=== PATIENT | female | born 1945 | race Caucasian/White ===

== ENCOUNTER 2019-10-17 15:30 | Emergency (ER) | payer MEDICARE, OTHER ==
[2019-10-17] MEDS ORDERED: Ondansetron 4 MG/2 ML SDV IVPUSH ONE ×2 (15:41→18:04)
[2019-10-17] MEDS ORDERED: Morphine 2 MG/ML SYRINGE IVPUSH ONE ×2 (15:42→18:03)
--- NOTE | 2019-10-17 15:59 | EDM.PDOC ---
ED HPI GENERAL MEDICAL PROBLEM - General Chief Complaint: Lower Extremity Injury/Pain Stated Complaint: FELL Time Seen by Provider: 10/17/19 15:40 Source of Information: Reports: Patient History Limitations: Reports: No Limitations - History of Present Illness INITIAL COMMENTS - FREE TEXT/NARRATIVE: This 73 year old female is admitted to the ED with a chief complaint of fall backwards and twisting her left hip after accidently striking her forehead on her garage door. She complains of moderate amount of pain in the left hip especially with movement. She denies any LOC but was dazed. She denies any headache or neck discomfort. She denies any chest pain or SOB. She is status post right total hip replacement by history. She denies other complaints at this time. She grades her pain as a 8-9/10 at this time. She received Fentanyl 50mcg IV prior to her arrival to the ED. Onset: Sudden (one hour CARE TECH to the ED) Left Hip Pain Score (Numeric/FACES): 7 - Related Data Allergies Allergy/AdvReac Type Severity Reaction Status Date / Time adhesive Allergy Redness Verified 10/17/19 15:41 chlorhexidine Allergy Itching Verified 10/17/19 16:28 fexofenadine [From Sindhu] Allergy Itching Verified 10/17/19 16:31 fexofenadine HCl Allergy Hives Verified 10/17/19 15:41 [From Sindhu] hydrocodone Allergy Itching Verified 10/17/19 16:31 tramadol Allergy Itching Verified 10/17/19 16:28 artifical sweetners Allergy Itching Uncoded 10/17/19 16:28 perfumes Allergy Headache Uncoded 10/17/19 15:41 Home Meds: Home Meds Bilberry 1 tab PO DAILY 07/24/14 [History] Gilbert Cit/Mag/D3/Zn/Shower Maid/Chadd/Bor [Citracal-Vit D + Magnesium] 1 tab PO DAILY 07/24 [History] Fexofenadine HCl 60 mg PO DAILY 07/24/14 [History] Pantoprazole Sodium 40 mg PO DAILY 07/24/14 [History] Parsley/Garlic [Garlic & Parsley] 1 tab PO DAILY 07/24/14 [History] Raloxifene HCl 60 mg PO DAILY 07/24/14 [History] Vitamin B Complex 1 tab PO DAILY 07/24/14 [History] estradioL [Estrace 0.01% Vaginal Crm] 2 gm VAG ASDIRECTED 10/17/19 [History] Review of Systems - Review of Systems Review Of Systems: See Below Constitutional: Reports: No Symptoms Eyes: Reports: No Symptoms Ears: Reports: No Symptoms Nose: Reports: No Symptoms Mouth/Throat: Reports: No Symptoms Respiratory: Reports: No Symptoms Cardiovascular: Reports: No Symptoms GI/Abdominal: Reports: No Symptoms Genitourinary: Reports: No Symptoms Musculoskeletal: Reports: Other (pain in left hip) Skin: Reports: No Symptoms Neurological: Reports: No Symptoms ED EXAM, GENERAL - Physical Exam Exam: See Below Exam Limited By: No Limitations General Appearance: Alert, WD/WN, Moderate Distress (complaining of left hip pain especially with movement) Eye Exam: Bilateral Eye: EOMI, Normal Inspection, PERRL Ears: Normal External Exam, Normal Canal, Hearing Grossly Normal, Normal TMs Ear Exam: Bilateral Ear: Auricle Normal, Canal Normal, TM normal Nose: Normal Inspection, Normal Mucosa, No Blood Throat/Mouth: Normal Inspection, Normal Oropharynx, No Airway Compromise Head: Atraumatic, Normocephalic, Other (NO signs of trauma of any kind) Neck: Normal Inspection, Supple, Non-Tender, Full Range of Motion. No: Carotid Bruit Respiratory/Chest: No Respiratory Distress, Lungs Clear, Normal Breath Sounds, Chest Non-Tender Cardiovascular: Normal Peripheral Pulses, Regular Rate, Rhythm, No Edema, No Gallop, No JVD, Systolic Murmur (soft systolic ejection murmur grade 2/6 best heard at the apex without radiation of murmur.) Peripheral Pulses: 3+: Femoral (L), Femoral (R), Dorsalis Pedis (L), Dorsalis Pedis (R) GI/Abdominal: Normal Bowel Sounds, Soft, Non-Tender, No Organomegaly, No Distention, No Abnormal Bruit, No Mass (Female) Exam: Deferred Rectal (Female) Exam: Deferred Back Exam: Normal Inspection Extremities: No Pedal Edema, Normal Capillary Refill, Other (left leg is shortened and externally rotated. Neuro/Vasc intact). No: Jese's Sign Neurological: Alert, Oriented (times 4), CN II-XII Intact, Normal Cognition, Normal Reflexes, No Motor/Sensory Deficits Psychiatric: Normal Affect, Normal Mood Skin Exam: Warm, Dry, Intact, Normal Color, No Rash Lymphatic: No Adenopathy Course - Vital Signs Text/Narrative:: The patient X-rays reveals a Subcapital and intertroch fracture of the left femur (hip). I discussed this with the patient and showed her the x-rays. She understands that we do not have an orthopedic surgeon available until Monday. She has agreed to transfer via ALS. I spoke with Dr. Ortiz at [facility] in [place] at 5:48PM regarding transferring her for definitive care. He has accepted her. She will be admitted through the ED. She will be transferred via ALS. Last Recorded V/S: Last Vital Signs Temp 96.7 F L 10/17/19 15:36 Pulse 84 10/17/19 15:36 Resp 16 10/17/19 15:36 BP 207/105 H 10/17/19 15:36 Pulse Ox 92 L 10/17/19 15:36 - Orders/Labs/Meds Orders: Active Orders 24 hr Category Date Time Status EKG 12 Lead [EKG Documentation Completion] [RC] STAT Care 10/17/19 15:51 Active CBC WITH AUTO DIFF [HEME] Stat Lab 10/17/19 15:50 Ordered COMPREHENSIVE METABOLIC PN,CMP [CHEM] Stat Lab 10/17/19 15:50 Ordered INR,PT,PROTHROMBIN TIME [COAG] Stat Lab 10/17/19 15:50 Ordered MAGNESIUM [CHEM] Stat Lab 10/17/19 15:50 Ordered UA RFX MARION AND CULT IF INDIC [URIN] Stat Lab 10/17/19 15:50 Ordered Meds: Medications Discontinued Medications Generic Name Dose Route Start Last Admin Trade Name Manjinder PRN Reason Stop Dose Admin Morphine Sulfate 2 mg 10/17/19 15:42 10/17/19 15:56 Morphine IVPUSH 10/17/19 15:43 2 mg ONETIME ONE Administration Ondansetron HCl 4 mg 10/17/19 15:41 10/17/19 15:51 Zofran IVPUSH 10/17/19 15:42 4 mg ONETIME ONE Administration Departure - Departure Time of Disposition: 18:00 Disposition: DC/Tfer to Acute Hospital 02 Condition: Good Clinical Impression: Fracture of hip, left, closed Qualifiers: Encounter type: initial encounter Qualified Code(s): S72.002A - Fracture of unspecified part of neck of left femur, initial encounter for closed fracture - Discharge Information *PRESCRIPTION DRUG MONITORING PROGRAM REVIEWED*: Yes *COPY OF PRESCRIPTION DRUG MONITORING REPORT IN PATIENT YANETH: Yes Sepsis Event Note - Evaluation Sepsis Screening Result: No Definite Risk - Focused Exam Vital Signs: Vital Signs Temp Pulse Resp BP Pulse Ox 10/17/19 15:36 96.7 F L 84 16 207/105 H 92 L Date Exam was Performed: 10/17/19 Time Exam was Performed: 17:42 - My Orders Last 24 Hours: My Active Orders 10/17/19 15:50 CBC WITH AUTO DIFF [HEME] Stat COMPREHENSIVE METABOLIC PN,CMP [CHEM] Stat INR,PT,PROTHROMBIN TIME [COAG] Stat MAGNESIUM [CHEM] Stat UA RFX MARION AND CULT IF INDIC [URIN] Stat 10/17/19 15:51 EKG 12 Lead [EKG Documentation Completion] [RC] STAT - Assessment/Plan Last 24 Hours: My Active Orders 10/17/19 15:50 CBC WITH AUTO DIFF [HEME] Stat COMPREHENSIVE METABOLIC PN,CMP [CHEM] Stat INR,PT,PROTHROMBIN TIME [COAG] Stat MAGNESIUM [CHEM] Stat UA RFX MARION AND CULT IF INDIC [URIN] Stat 10/17/19 15:51 EKG 12 Lead [EKG Documentation Completion] [RC] STAT
--- NOTE | 2019-10-17 16:37 | CR ---
Chest: Portable supine view of the chest was obtained. Comparison: No previous chest imaging. Increased lung markings are seen. Findings most likely are chronic but no previous chest x-ray is available to confirm. No alveolar type densities are seen. Minimal linear densities are seen most likely due to scarring. Heart size at the upper limits of normal. Bony structures are grossly intact. Impression: 1. Findings as described above. Nothing acute is definitely suspected. Diagnostic code #2 This report was dictated in MDT
--- NOTE | 2019-10-17 16:44 | CR ---
Pelvis and left hip: AP view of the pelvis was obtained as well as AP view and crosstable lateral views left hip. Basicervical fracture is seen within the left hip with slight intertrochanteric extension. Old healed fracture is noted within the right hip. Osteopenia is seen. No additional abnormality is noted. Impression: 1. Left hip fracture as described above. Diagnostic code #5 This report was dictated in MDT
--- NOTE | 2019-10-17 16:44 | CR ---
Left femur: AP and lateral views left femur were obtained. Basicervical fracture is identified within the proximal left femur. Mild angulation is seen and mild displacement. No additional fracture or other abnormality is appreciated. Impression: 1. Basicervical fracture within the left hip. Diagnostic code #5 This report was dictated in MDT
[2019-10-17 18:14] LABS: BLOOD UREA NITROGEN,BUN 17 mg/dL (7.0-18.0); CARBON DIOXIDE,CO2 25.9 mmol/L (21.0-32.0); CHLORIDE,CL 103 mmol/L (98-107); GLUCOSE RANDOM 131 mg/dL (74-106); POTASSIUM,K 4.1 mmol/L (3.5-5.1); SODIUM,NA 142 mmol/L (136-145)
[2019-10-17] MEDS ORDERED: Sodium Chloride 0.9% 1,000 ML IV ONE (18:22)
== END 2019-10-17 19:40 ==
LOC: MW.ED 15:30
DX: S72.002A Fracture of unspecified part of neck of left femur, initial encounter for closed fracture (principal); Z88.8 Allergy status to other drugs, medicaments and biological substances; Z88.5 Allergy status to narcotic agent; Z91.048 Other nonmedicinal substance allergy status; W19.XXXA Unspecified fall, initial encounter; Z79.899 Other long term (current) drug therapy; R94.31 Abnormal electrocardiogram [ECG] [EKG]
CPT/HCPCS: 36415; 51702; 71045; 73502; 73552; 80053; 81001; 83735; 85025; 85610; 87086; 87088; 87186; 93005; 96374; 96375; 96376; 99285; J2270; J2405; J7030; 99284

== ENCOUNTER 2022-03-03 06:30 | Day surgery (SDC) | payer MEDICARE, OTHER ==
[~2022-03-03 06:30] MED LIST: Lactated Ringers 1,000 ML IV SCH; Sodium Chloride 0.9% 10 ML Syringe FLUSH PRN; Sodium Chloride 0.9% 2.5 ML Syringe FLUSH PRN; Sodium Chloride 0.9% 20 ML SDV IV PRN
[2022-03-03] MEDS ORDERED: Propofol 200 MG/20 ML SDV ONE (07:28)
[2022-03-03] MEDS ORDERED: fentaNYL 100 MCG/2 ML SDV ONE (07:28)
== END 2022-03-03 09:50 | disposition home or self-care (01) ==
LOC: MW.SDS 06:30
PROVIDERS: ATTEND Surgery
DX: D12.2 Benign neoplasm of ascending colon (principal); D12.5 Benign neoplasm of sigmoid colon; K57.30 Diverticulosis of large intestine without perforation or abscess without bleeding; I10 Essential (primary) hypertension; J30.9 Allergic rhinitis, unspecified; K21.9 Gastro-esophageal reflux disease without esophagitis; M81.0 Age-related osteoporosis without current pathological fracture; Z88.6 Allergy status to analgesic agent; Z88.5 Allergy status to narcotic agent; Z88.8 Allergy status to other drugs, medicaments and biological substances; Z88.1 Allergy status to other antibiotic agents; Z91.018 Allergy to other foods; Z79.82 Long term (current) use of aspirin; Z79.899 Other long term (current) drug therapy; Z79.1 Long term (current) use of non-steroidal anti-inflammatories (NSAID); Z87.891 Personal history of nicotine dependence; Z90.710 Acquired absence of both cervix and uterus; Z98.890 Other specified postprocedural states; Z96.649 Presence of unspecified artificial hip joint
CPT/HCPCS: 45380; 88305; J2704; J3010; J7120; 00811; 99100

== ENCOUNTER 2024-03-07 22:38 | Emergency (ER) | payer MEDICARE, OTHER ==
[2024-03-07 23:14] LABS: BASOPHILS ABSOLUTE AUTO 0.03 K/uL (0.00-0.20); BASOPHILS PERCENT AUTO 0.2 % (0.0-1.0); HEMATOCRIT 35.5 % (37.0-47.0); IMMATURE GRAN ABSOLUTE AUTO 0.09 K/uL (0.00-0.05); IMMATURE GRAN PERCENT AUTO 0.7 % (0.0-0.4); LYMPHOCYTES ABSOLUTE AUTO 0.84 K/uL (1.00-4.80); LYMPHOCYTES PERCENT AUTO 6.5 % (24.0-44.0); MEAN CORPUSCULAR HEMOGLOBIN 29.8 pg (28.0-32.0); MEAN CORPUSCULAR HGB CONC 33.8 g/dL (32.0-36.0); MEAN CORPUSCULAR VOLUME 88.1 fL (83.0-99.0); MEAN PLATELET VOLUME 10.5 fL (9.4-12.3); MONOCYTES PERCENT AUTO 0.8 % (0.0-8.0); NEUTROPHILS ABSOLUTE AUTO 11.95 K/uL (1.80-7.70); NEUTROPHILS PERCENT AUTO 91.8 % (41.0-71.0); PLATELET COUNT,PLT 240 K/uL (150-400); RED BLOOD CELL COUNT 4.03 M/uL (4.10-5.30); WHITE BLOOD CELL COUNT,WBC 13.01 K/uL (3.9-11.3)
[2024-03-07] MEDS: Ondansetron 4 MG/2 ML SDV IVPUSH ONE ×2 (23:24→23:32)
[2024-03-07] MEDS: Sodium Chloride 0.9% 10 ML Syringe FLUSH PRN (23:24)
[2024-03-07] MEDS: Sodium Chloride 0.9% 2.5 ML Syringe FLUSH PRN (23:24)
[2024-03-07 23:25] LABS: APPEARANCE,URINE SLT CLOUDY; BILIRUBIN,URINE NEGATIVE (NEGATIVE); COLOR,URINE YELLOW; GLUCOSE,URINE NEGATIVE (NEGATIVE); KETONES,URINE NEGATIVE (NEGATIVE); LEUKOCYTE ESTERASE,URINE NEGATIVE (NEGATIVE); NITRITE,URINE NEGATIVE (NEGATIVE); OCCULT BLOOD,URINE LARGE (NEGATIVE); PROTEIN,URINE NEGATIVE (NEGATIVE); UROBILINOGEN,URINE 0.2 EU/dL (<2.0)
[2024-03-07 23:30] LABS: BACTERIA,URINE 1+ (NEGATIVE); MUCUS,URINE LIGHT (NONE-MOD); RBC,URINE TOO NUMEROUS TO CT (0-2/HPF); SQUAMOUS EPITHELIAL CELLS,UR OCCASIONAL
[2024-03-07] MEDS: Ketorolac 30 MG/ML SDV IVPUSH ONE (23:35)
[2024-03-07 23:39] LABS: A/G RATIO 1.1 (0.9-1.6); ALBUMIN 4.2 g/dL (3.4-5.0); BILIRUBIN TOTAL 0.4 mg/dL (0.2-1.0); CALCIUM 9.6 mg/dL (8.5-10.1); CARBON DIOXIDE,CO2 26.8 mmol/L (21.0-32.0); CREATININE 1.2 mg/dL (0.6-1.0); EST CRCL DRUG DOSING (CG) 29.57 mL/min; POTASSIUM,K 4.5 mmol/L (3.5-5.1)
[2024-03-07] MEDS: Iopamidol 755 MG/ML 500 ML Multipack Bottle IVPUSH STA (23:52)
[2024-03-08] MEDS: Sodium Chloride 0.9% 1,000 ML IV STA (01:12)
[2024-03-08] MEDS: cefTRIAXone 2 GM in Sodium Chloride 0.9% 50 ML IV ONE (01:13)
[2024-03-08] MEDS: Tamsulosin 0.4 MG Cap.ER PO ONE (01:13)
== END 2024-03-08 09:36 ==
LOC: MW.ED 22:38
DX: N13.2 Hydronephrosis with renal and ureteral calculous obstruction (principal); N39.0 Urinary tract infection, site not specified; I10 Essential (primary) hypertension; K21.9 Gastro-esophageal reflux disease without esophagitis; Z88.8 Allergy status to other drugs, medicaments and biological substances; Z91.048 Other nonmedicinal substance allergy status; Z79.82 Long term (current) use of aspirin; Z79.899 Other long term (current) drug therapy; Z90.710 Acquired absence of both cervix and uterus; Z75.8 Other problems related to medical facilities and other health care
CPT/HCPCS: 36415; 74177; 80053; 81001; 83690; 84484; 85025; 93005; 96365; 96375; 99285; A9270; J0696; J1885; J2405; J3490; J7030; Q9967; 93010

== ENCOUNTER 2024-09-04 15:26 | Emergency (ER) | payer MEDICARE, OTHER ==
[2024-09-04] MEDS ORDERED: Sodium Chloride 0.9% 2.5 ML Syringe FLUSH PRN (15:42)
[2024-09-04] MEDS ORDERED: Sodium Chloride 0.9% 10 ML Syringe FLUSH PRN (15:42)
[2024-09-04] MEDS: Sodium Chloride 0.9% 1,000 ML IV ONE (16:02)
[2024-09-04 16:20] LABS: APPEARANCE,URINE CLEAR; BILIRUBIN,URINE NEGATIVE (NEGATIVE); COLOR,URINE YELLOW; GLUCOSE,URINE NEGATIVE (NEGATIVE); KETONES,URINE NEGATIVE (NEGATIVE); LEUKOCYTE ESTERASE,URINE NEGATIVE (NEGATIVE); NITRITE,URINE NEGATIVE (NEGATIVE); OCCULT BLOOD,URINE NEGATIVE (NEGATIVE); PH,URINE 7.5 (5.0-8.0); PROTEIN,URINE NEGATIVE (NEGATIVE); UROBILINOGEN,URINE 0.2 EU/dL (<2.0)
[2024-09-04 16:26] LABS: BASOPHILS ABSOLUTE AUTO 0.09 K/uL (0.00-0.20); BASOPHILS PERCENT AUTO 1.5 % (0.0-1.0); EOSINOPHILS ABSOLUTE AUTO 0.31 K/uL (0.00-0.45); EOSINOPHILS PERCENT AUTO 5.1 % (0.0-6.0); HEMATOCRIT 33.7 % (37.0-47.0); HEMOGLOBIN 11.5 g/dL (12.0-16.0); IMMATURE GRAN ABSOLUTE AUTO 0.01 K/uL (0.00-0.05); IMMATURE GRAN PERCENT AUTO 0.2 % (0.0-0.4); LYMPHOCYTES ABSOLUTE AUTO 1.86 K/uL (1.00-4.80); LYMPHOCYTES PERCENT AUTO 30.5 % (24.0-44.0); MEAN CORPUSCULAR HEMOGLOBIN 29.9 pg (28.0-32.0); MEAN CORPUSCULAR HGB CONC 34.1 g/dL (32.0-36.0); MEAN CORPUSCULAR VOLUME 87.5 fL (83.0-99.0); MEAN PLATELET VOLUME 10.6 fL (9.4-12.3); MONOCYTES ABSOLUTE AUTO 0.51 K/uL (0.00-0.80); MONOCYTES PERCENT AUTO 8.4 % (0.0-8.0); NEUTROPHILS ABSOLUTE AUTO 3.31 K/uL (1.80-7.70); NEUTROPHILS PERCENT AUTO 54.3 % (41.0-71.0); PLATELET COUNT,PLT 241 K/uL (150-400); RED BLOOD CELL COUNT 3.85 M/uL (4.10-5.30); WHITE BLOOD CELL COUNT,WBC 6.09 K/uL (3.9-11.3)
[2024-09-04 16:43] LABS: A/G RATIO 1.2 (0.9-1.6); BILIRUBIN TOTAL 0.3 mg/dL (0.2-1.0); CALCIUM 9.3 mg/dL (8.5-10.1); CARBON DIOXIDE,CO2 28.8 mmol/L (21.0-32.0); CREATININE 1.1 mg/dL (0.6-1.0); EST CRCL DRUG DOSING (CG) 30.78 mL/min; MAGNESIUM 2.5 mg/dL (1.8-2.4); POTASSIUM,K 4.4 mmol/L (3.5-5.1); PROTEIN TOTAL,TP 7.4 g/dL (6.4-8.2)
[2024-09-04 16:46] LABS: LACTIC ACID 0.5 mmol/L (0.4-2.0)
[2024-09-04] MEDS: Iopamidol 755 MG/ML 500 ML Multipack Bottle IVPUSH STA (17:10)
[2024-09-04 17:19] LABS: BACTERIA,URINE RARE (NEGATIVE); EPITHELIAL CELLS,URINE RARE (NONE-FEW); RBC,URINE 0-2 (0-2/HPF); WBC,URINE 0-1 (0-5/HPF)
[2024-09-04] MEDS: Ciprofloxacin 500 MG Tab PO ONE (18:35)
== END 2024-09-04 18:48 | disposition home or self-care (01) ==
LOC: MW.ED 15:26
DX: N39.0 Urinary tract infection, site not specified (principal); N28.89 Other specified disorders of kidney and ureter; I11.0 Hypertensive heart disease with heart failure; I50.9 Heart failure, unspecified; K21.9 Gastro-esophageal reflux disease without esophagitis; M19.90 Unspecified osteoarthritis, unspecified site; Z90.710 Acquired absence of both cervix and uterus; Z88.1 Allergy status to other antibiotic agents; Z88.6 Allergy status to analgesic agent; Z88.5 Allergy status to narcotic agent; Z91.048 Other nonmedicinal substance allergy status; Z79.82 Long term (current) use of aspirin; Z79.899 Other long term (current) drug therapy; Z75.8 Other problems related to medical facilities and other health care
CPT/HCPCS: 36415; 74177; 80053; 81001; 83605; 83735; 85025; 87040; 87428; 99284; A9270; J7030; Q9967; 99283